=== PATIENT | male | born 1985 | race Caucasian/White ===

== ENCOUNTER 2016-12-17 22:04 | Emergency (ER) | payer OTHER ==
--- NOTE | 2016-12-17 23:34 | DIAGNOSTIC IMAGING REPORT ---
PROCEDURE: US VENOUS - LEFT EXT INDICATION: Recent ACL repair with left leg swelling. Initial encounter. TECHNIQUE: Duplex sonography of the deep venous system in the left lower extremity was performed. Compression and augmentation techniques were used. COMPARISON: None. FINDINGS: There is a left peroneal vein thrombus with partial recanalization. Remainder of the deep system demonstrates normal compression and vascular flow. There is a 4.1 x 2.2 x 0.5 cm hypoechoic area just [id number] anteromedially consistent with a hematoma. IMPRESSION: 1. Left peroneal vein thrombus with recanalization 2. Small hematoma below the knee anteromedially. 3. Results discussed with Dr. Stephens
--- NOTE | 2016-12-17 23:34 | DIAGNOSTIC IMAGING REPORT ---
PROCEDURE: US VENOUS - LEFT EXT INDICATION: Recent ACL repair with left leg swelling. Initial encounter. TECHNIQUE: Duplex sonography of the deep venous system in the left lower extremity was performed. Compression and augmentation techniques were used. COMPARISON: None. FINDINGS: There is a left peroneal vein thrombus with partial recanalization. Remainder of the deep system demonstrates normal compression and vascular flow. There is a 4.1 x 2.2 x 0.5 cm hypoechoic area just [id number] anteromedially consistent with a hematoma. IMPRESSION: 1. Left peroneal vein thrombus with recanalization 2. Small hematoma below the knee anteromedially. 3. Results discussed with Dr. Stephens
--- NOTE | 2016-12-18 00:01 | ED ORDER SUMMARY ---
..... Patient: MONIKA WEBER OrderSheet [facility] VisitID: [id number] [place] [address] 31y, M Registration Date/Time: 12/17/2016 ORDER SHEET Weight: 88.4 kg (stated) Allergies: No Known Drug Allergy GENERAL ORDERS: US Venous Left Urgent (22:20 12/17/2016 Mary Jo Yuen) (Ack 22:21 AMcQuoid ER Tech1) (22:57 AMcQuoid ER Tech1) CBC w Diff Urgent (22:20 12/17/2016 Mary Jo Yuen) (Ack 22:21 AMcQuoid ER Tech1) (23:08 HOShaughnessy R.N.) CMP Urgent (22:20 12/17/2016 Mary Jo Yuen) (Ack 22:21 AMcQuoid ER Tech1) (23:08 HOShaughnessy R.N.) PT with INR Urgent (22:20 12/17/2016 Mary Jo Yuen) (Ack 22:21 AMcQuoid ER Tech1) (23:08 HOShaughnessy R.N.) PTT Urgent (22:20 12/17/2016 Mary Jo Yuen) (Ack 22:21 AMcQuoid ER Tech1) (23:08 HOShaughnessy R.N.) CPK Urgent (22:20 12/17/2016 Mary Jo Yuen) (Ack 22:21 AMcQuoid ER Tech1) (23:08 HOShaughnessy R.N.) MEDICATION ORDERS: IV FLUIDS: IV Saline Lock (22:20 12/17/2016 Mary Jo Yuen) (23:08 HOShaughnessy R.N.) Morphine IV 4 mg (HIGH ALERT MEDICATION, NOW) (23:28 12/17/2016 Mary Jo Yuen) (23:39 HOShaughnessy R.N.) Zofran IV 4 mg (NOW) (23:29 12/17/2016 Mary Jo Yuen) (23:39 HOShaughnessy R.N.) ORDER SHEET NOTES: [Electronically signed by Armen Stephens Dr. (00:05 12/18/2016)] [Electronically signed by Devin Xavier R.N. (00:12/18/2016)] [Electronically locked/signed by Devin Xavier R.N. (00:12/18/2016)]
--- NOTE | 2016-12-18 00:01 | ED ORDER SUMMARY ---
..... Patient: MONIKA WEBER OrderSheet [facility] VisitID: [id number] [place] [address] 31y, M Registration Date/Time: 12/17/2016 ORDER SHEET Weight: 88.4 kg (stated) Allergies: No Known Drug Allergy GENERAL ORDERS: US Venous Left Urgent (22:20 12/17/2016 Mary Jo Yuen) (Ack 22:21 AMcQuoid ER Tech1) (22:57 AMcQuoid ER Tech1) CBC w Diff Urgent (22:20 12/17/2016 Mary Jo Yuen) (Ack 22:21 AMcQuoid ER Tech1) (23:08 HOShaughnessy R.N.) CMP Urgent (22:20 12/17/2016 Mary Jo Yuen) (Ack 22:21 AMcQuoid ER Tech1) (23:08 HOShaughnessy R.N.) PT with INR Urgent (22:20 12/17/2016 Mary Jo Yuen) (Ack 22:21 AMcQuoid ER Tech1) (23:08 HOShaughnessy R.N.) PTT Urgent (22:20 12/17/2016 Mary Jo Yuen) (Ack 22:21 AMcQuoid ER Tech1) (23:08 HOShaughnessy R.N.) CPK Urgent (22:20 12/17/2016 Mary Jo Yuen) (Ack 22:21 AMcQuoid ER Tech1) (23:08 HOShaughnessy R.N.) MEDICATION ORDERS: IV FLUIDS: IV Saline Lock (22:20 12/17/2016 Mary Jo uYen) (23:08 HOShaughnessy R.N.) Morphine IV 4 mg (HIGH ALERT MEDICATION, NOW) (23:28 12/17/2016 Mary Jo Yuen) (23:39 HOShaughnessy R.N.) Zofran IV 4 mg (NOW) (23:29 12/17/2016 Mary Jo Yuen) (23:39 HOShaughnessy R.N.) ORDER SHEET NOTES: [Electronically signed by Armen Stephens Dr. (00:05 12/18/2016)] [Electronically signed by Devin Xavier R.N. (00:12/18/2016)] [Electronically locked/signed by Devin Xavier R.N. (00:12/18/2016)]
--- NOTE | 2016-12-18 00:01 | ED CLINICAL REPORT ---
Clinical Report - Physicians/Mid Levels [facility] [address] [place] [address] 12/17/2016 22:07 Patient: MONIKA WEBER Time Seen: 22:12; initial patient contact. Arrived- By private vehicle. Historian- patient. HISTORY OF PRESENT ILLNESS Chief Complaint: LOWER EXTREMITY PAIN, SWELLING and ALTERED SENSATION. Flexion- worsened by standing, walking and flexion. Relieved by remaining still. This started today and is still present. It was gradual in onset. Severity is described as being moderate. The quality is noted to be sharp. No radiation. Symptoms located in the area of the left knee, left leg and left ankle. The patient has had swelling, but not had redness. He has had difficulty walking. Sensory loss. No motor loss. Patient notes the possibility of an injury. Mechanism of injury- (Post op ACL repair 1 wk ago, Dx'd w/ DVT 4 days ago and started on Elequis.). Similar symptoms previously: None. Recent medical care: The patient was seen recently in the office and hospitalized. ( for ACL Sx and subsequent DVT). REVIEW OF SYSTEMS No cough, chest pain, difficulty breathing or fever. He has had skin rash. All systems otherwise negative, except as recorded above. PAST HISTORY One episode of DVT secondary to surgery. Surgeries: Left knee surgery (ACL 1 week ago). Medications: Elequis. Dulcolax Oral. HydrOXYzine HCl Oral. OxyCODONE HCl Oral. Dilaudid Oral. Allergies: No Known Drug Allergy. SOCIAL HISTORY Never smoker. No alcohol use or drug use. ADDITIONAL NOTES The nursing notes have been reviewed with agreement regarding the chief complaint, PMH and patient medications and allergies. PHYSICAL EXAM Vital Signs: 12/17/2016 22:24 BP: 164/99. HR: 103. RR: 16. O2 saturation: 99%. Temp: 98.3 F. Have been reviewed. Hypertensive. Tachycardic. Respiratory rate normal. Temperature normal. Oxygen saturation normal. Appearance: Alert. Oriented X3. No acute distress. Eyes: Eyes normal inspection. ENT: Pharynx normal. CVS: Normal heart rate and rhythm. Heart sounds normal. Pulses: left dorsalis pedis 2+ and left posterior tibial 2+. Respiratory: No respiratory distress. Breath sounds normal. Skin: Rash present on the left leg (Petechial). Extremities: Left knee: mild tenderness. (Surgical bandage CDI). No erythema or swelling. Mild non-pitting edema of the left lower extremity involving the lower leg. Calf tenderness. Neuro, Vascular and Tendons: Lower extremity capillary refill not prolonged. Gait: Gait not tested due to pain. LABS, X-RAYS, AND EKG Lower Extremity Sonography: 1. Left peroneal vein thrombus with recanalization 2. Small hematoma below the knee anteromedially. The exam was performed by a earth moving technician. The study was interpreted by the radiologist and discussed with the radiologist. Prior studies were not available for comparison. Interpretation time: 23:35. Laboratory Tests: CBC w Diff: (RACHAEL: 12/17/2016 23:02) ( [facility] [place] 12/17/2016 23:10) Final results Test Result Flag Units (Reference) WHITE BLOOD COUNT 6.0 K/uL (4.5-11.5) RED BLOOD COUNT 4.06 L M/uL (4.50-5.90) HEMOGLOBIN 11.8 L gm/dL (13.5-17.5) HEMATOCRIT 34.8 L % (41.0-53.0) MEAN CELL VOLUME 86 fL (80-100) MEAN CORPUSCULAR HGB 29 pg (26-34) MEAN CORPUSCULAR HGB CONC 34 g/dL (31-37) RED CELL DISTRIBUTION WIDTH 12.4 % (11.6-14.8) PLATELET COUNT 169 K/uL (150-400) LYMPH % 26.3 % (25-40) MONO % 3.3 % (3-14) GRANULOCYTE % 70.4 PT with INR: (RACHAEL: 12/17/2016 23:02) ( MsgRcvd 12/17/2016 23:18) Final results Test Result Flag Units (Reference) INR 1.1 (0.8-1.2) Low Intensity Therapy: INR 1.5-2.0 PT range 18.5-23.1Mod.Intensity Therapy: INR 2.0-3.0 PT range 23.1-31.5High Intensity Therapy: INR 2.5-3.5 PT range 27.4-35.5High Intensity Therapy 2: INR 3.0-4.0 PT range 31.5-39.3 APTT 35 H SECONDS (24-34) CMP: (RACHAEL: 12/17/2016 23:02) ( MsgRcvd 12/17/2016 23:43) Final results Test Result Flag Units (Reference) GLUCOSE 90 mg/dL (70-110) BUN 16 mg/dL (7-18) CREATININE 0.9 mg/dL (0.6-1.3) Estimated GFR >60 mL/min Estimated GFR- >60 mL/min Note: Persistent reduction over 3 months in eGFR<60 mL/min/1.73 m2 defines CKD. Patients with eGFR values>=60 mL/min/1.73 m2 may also have CKD if evidence ofpersistent proteinuria. Additional information may be foundat www.kidney.org. SODIUM 137 mmol/L (136-145) POTASSIUM 4.1 mmol/L (3.5-5.1) CHLORIDE 100 mmol/L (98-107) CARBON DIOXIDE 30 mmol/L (21-32) CALCIUM 10.0 mg/dL (8.5-10.1) TOTAL PROTEIN 8.2 g/dL (6.4-8.2) ALBUMIN 4.0 g/dL (3.3-5.0) BILIRUBIN, TOTAL 0.4 mg/dL (0.0-1.0) ALKALINE PHOSPHATASE 68 U/L (46-116) AST (SGOT) 73 H U/L (15-37) ALT (SGPT) 124 H U/L (12-78) CPK 361 H U/L (24-260) CK-MB 0.6 ng/mL (0.5-3.2) %CKMB 0.2 % (0.0-4.0) . PROGRESS AND PROCEDURES Disposition: Discharged home in good and improved condition. Condition: good. CLINICAL IMPRESSION Abnormal liver function test: AST/SGOT and ALT/SGPT. Acute deep venous thrombosis of the left distal lower extremity (Peroneal V). INSTRUCTIONS No weight bearing left leg until released. Your Current Medications: CONTINUE TAKING THE FOLLOWING MEDICATIONS: Dilaudid Oral. Dulcolax Oral. Elequis*. HydrOXYzine HCl Oral. OxyCODONE HCl Oral. Prescription Medications: Oxycodone 5 mg tablets: take 1-2 orally every 6 hours as needed for pain. Dispense fifteen (15). No refill. Follow-up: Follow up with your doctor in about two days. Call for an appointment. Screening today revealed the patient's blood pressure to be in the hypertensive range. The patient should follow up with a primary care provider for blood pressure management. (Electronically signed by Armen Stephens Dr. 12/18/2016 0:05)
--- NOTE | 2016-12-18 00:01 | ED NURSING NOTES ---
Clinical Report - Nurses [facility] [place] [address] 12/17/2016 22:07 Patient: MONIKA WEBER TRIAGE Triage time 2224 PM. Acuity: LEVEL 2. Chief Complaint: INJURY TO THE LEFT KNEE, LEFT LEG, LEFT ANKLE and LEFT FOOT. Alert. No acute distress. RENE COMA SCORE: Teller Coma Scale: 15- eyes open spontaneously (4); best verbal response- oriented x 4 (5); best motor response- obeys commands (6). --22:31 Devin Xavier R.N. 22:24 12/17/16. BP: 164/99. HR: 103. RR: 16. O2 saturation: 99%. Temp: 98.3 F (oral). --22:31 Devin Xavier R.N. Weight: 88.4 kg stated. Height/Length: 73 inches Per Patient. BMI: 25.7. --22:50 Devin Xavier R.N. Medications Dilaudid Oral. --22:29 Devin Xavier R.N. OxyCODONE HCl Oral. --22:29 Devin Xavier R.N. HydrOXYzine HCl Oral. --22:30 Devin Xavier R.N. Dulcolax Oral. --22:30 Devin Xavier R.N. Allergies No Known Drug Allergy. --22:30 Devin Xavier R.N. History Arrived by private vehicle. Historian: patient. Accompanied by family. This occurred (about 4 days ago). ( Patient presents to the ED with symptoms of left lower extremity pain, swelling, and petechiae. Patient states that he had ACL repair surgery on 12/11 and was diagnosed with a blood clot on 12/13 and discharged with a prescription for elliquis. States that he has been taking the medications as prescribed, but the pain and swelling had worsened. Patient orthopedic surgeon suggested patient be seen in the ED for rule out compartment syndrome.). He has had numbness, tingling, and trouble walking. PAST MEDICAL HX: Tetanus status: up-to-date. SOCIAL HX: Never smoker. Alcohol use. (no). History of drug use. (no). FALL RISK ASSESSMENT: Fall risk assessment completed. No fall risk identified. NUTRITIONAL RISK ASSESSMENT: The nutritional risk assessment revealed no deficiencies. FUNCTIONAL ASSESSMENT: Functional assessment: no impairments noted. LEARNING NEEDS ASSESSMENT: The learning needs assessment revealed no barriers. SKIN INTEGRITY ASSESSMENT: Skin integrity risk assessment completed. No skin integrity risk identified. --22:31 Devin Xavier R.N. PROBLEMS: no known problems. ADDITIONAL SURGERIES: ACL Repair . --22:30 Devin Xavier R.N. Interventions ID band on patient. --22:31 Devin Xavier R.N. PHYSICAL ASSESSMENT (crutches). GENERAL / NEURO / PSYCH: Oriented X 4. Alert. Appears in no acute distress. He has had numbness. EXTREMITIES: Limited ROM present. Capillary refill is less than 2 seconds in the extremities. Extremity pulses are within normal limits. Extremities exhibit normal ROM. Neuro-vascular status intact to the extremity. Left knee. Left leg. Left ankle. Left foot: erythema. SKIN: ( petechiae to left lower extremity). --22:32 Devin Xavier R.N. NURSING PROGRESS NOTES Reassurance given. Call light placed in reach. Side rails up x 2. Bed placed in lowest position. Brakes of bed on. --22:32 Devin Xavier R.N. 22:57 Ultrasound complete. --22:57 [place], [place], ER Tech1 23:08 12/17/2016 Site #1 started via IV in the right forearm with an 18g angiocath; one attempt. Blood drawn: rainbow set. Labeled in the presence of the patient and sent to the lab. Saline lock flushed with 10 mL saline. --23:08 Devin Xavier R.N. 23:38 12/17/2016 Morphine IVP 4 mg given over 2 minute(s) via site #1. Allergies verified, confirmed 5 rights and sedative warning given to the patient. IV patency established. IV site checked: no pain, redness, or swelling. IV flushed thoroughly pre- and post-medication administration. IVP given by RN. --23:39 Devin Xavier R.N. 23:39 12/17/2016 Zofran (Ondansetron HCl) IVP 4 mg given over 2 minute(s) via site #1. Allergies verified and confirmed 5 rights. IV patency established. IV site checked: no pain, redness, or swelling. IV flushed thoroughly pre- and post-medication administration. IVP given by RN. --23:39 Devin Xavier R.N. Reassurance given. Call light placed in reach. Side rails up x 2. --23:39 Devin Xavier R.N. 23:39 12/17/16. BP: 152/110. HR: 81. RR: 16. O2 saturation: 100%. Temp: 98.6 F (oral). Pain level now: 10. --23:39 Devin Xavier R.N. The patient is calm and resting quietly. Overall patient status is the same- he states feels the same. --23:39 Devin Xavier R.N. DISPOSITION / DISCHARGE 00:04 12/18/2016 Site #1 removed upon discharge. Catheter intact. Bandage applied. --00:04 Devin Xavier R.N. 00:03 12/18/16. BP: 144/97. HR: 82. RR: 16. O2 saturation: 97% on room air. Temp: 98.2 F (oral). Pain level now: 0/10. --00:04 Devin Xavier R.N. Condition at departure: improved. The goals identified in the patient's plan of care were met. Reviewed medication(s) side effects, precautions, dosing and course information. Prescription(s) given to the patient. Patient verbalized understanding. Written instructions provided in Palestinian. The patient was discharged home and accompanied by spouse. He left the Emergency Department ambulatory and via private vehicle. Spouse driving. FALL RISK ASSESSMENT: Fall risk assessment completed. No fall risk identified. --00:20 Devin Xavier R.N. Departure time: 0020 AM. --00:20 Devin Xavier R.N. Locked/Released at 12/18/2016 0:21 by Devin Xavier R.N.
--- NOTE | 2016-12-18 00:21 | ED MED RECONCILIATION SUMMARY ---
Patient: MONIKA WEBER Medication Reconciliation Report [facility] VisitID: [id number] [address] [place] [address] 31y, M Registration Date/Time: 12/17/2016 Weight: 88.4 kg Height/Length: 73 in. BMI: 25.7 ALLERGIES: No Known Drug Allergy The patient's Home Medications are listed below: CONTINUE TAKING THE FOLLOWING MEDICATIONS: Dilaudid Oral Dulcolax Oral Elequis HydrOXYzine HCl Oral OxyCODONE HCl Oral The source(s) of the original Home Medication information: Not obtained. The following Medications were given to the patient in the Emergency Department: Morphine [IVP] IVP 4 mg, administered: 12/17/2016 11:38:00 PM Zofran [IVP] IVP 4 mg, administered: 12/17/2016 11:39:00 PM The following Medications were prescribed to the patient: Oxycodone 5 mg tablets: take 1-2 orally every 6 hours as needed for pain. Dispense fifteen (15). No refill. -- Armen Stephens Dr.
--- NOTE | 2016-12-18 00:21 | ED MED RECONCILIATION SUMMARY ---
Patient: MONIKA WEBER Medication Reconciliation Report [facility] VisitID: [id number] [address] [place] [address] 31y, M Registration Date/Time: 12/17/2016 Weight: 88.4 kg Height/Length: 73 in. BMI: 25.7 ALLERGIES: No Known Drug Allergy The patient's Home Medications are listed below: CONTINUE TAKING THE FOLLOWING MEDICATIONS: Dilaudid Oral Dulcolax Oral Elequis HydrOXYzine HCl Oral OxyCODONE HCl Oral The source(s) of the original Home Medication information: Not obtained. The following Medications were given to the patient in the Emergency Department: Morphine [IVP] IVP 4 mg, administered: 12/17/2016 11:38:00 PM Zofran [IVP] IVP 4 mg, administered: 12/17/2016 11:39:00 PM The following Medications were prescribed to the patient: Oxycodone 5 mg tablets: take 1-2 orally every 6 hours as needed for pain. Dispense fifteen (15). No refill. -- Armen Stephens Dr.
--- NOTE | 2016-12-18 00:21 | ED DISCHARGE INSTRUCTIONS ---
Patient: MONIKA WEBER General Instructions [facility] VisitID: [id number] [address] [place] [address] 31y, M Registration Date/Time: 12/17/2016 Abnormal liver function test: AST/SGOT and ALT/SGPT. Acute deep venous thrombosis of the left distal lower extremity (Peroneal V). INSTRUCTIONS No weight bearing left leg until released. Your Current Medications: CONTINUE TAKING THE FOLLOWING MEDICATIONS: Dilaudid Oral. Dulcolax Oral. Elequis*. HydrOXYzine HCl Oral. OxyCODONE HCl Oral. Prescription Medications: Oxycodone 5 mg tablets: take 1-2 orally every 6 hours as needed for pain. Dispense fifteen (15). No refill. Follow-up: Follow up with your doctor in about two days. Call for an appointment. Screening today revealed the patient's blood pressure to be in the hypertensive range. The patient should follow up with a primary care provider for blood pressure management. ADDITIONAL INFORMATION Oxycodone Hydrochloride, Acetaminophen Oral tablet What is this medicine? ACETAMINOPHEN; OXYCODONE (a set a IRMA nghia fen; ox i KOE done) is a pain reliever. It is used to treat mild to moderate pain. How should I use this medicine? Take this medicine by mouth with a full glass of water. Follow the directions on the prescription label. Take your medicine at regular intervals. Do not take your medicine more often than directed. Talk to your senior microstrategy developer regarding the use of this medicine in children. Special care may be needed. Patients over 65 years old may have a stronger reaction and need a smaller dose. What side effects may I notice from receiving this medicine? Side effects that you should report to your doctor or health home health care worker as soon as possible: allergic reactions like skin rash, itching or hives, swelling of the face, lips, or tongue breathing difficulties, wheezing confusion light headedness or fainting spells severe stomach pain yellowing of the skin or the whites of the eyes Side effects that usually do not require medical attention (report to your doctor or health home health care worker if they continue or are bothersome): dizziness drowsiness nausea vomiting What may interact with this medicine? alcohol antihistamines barbiturates like amobarbital, butalbital, butabarbital, methohexital, pentobarbital, phenobarbital, thiopental, and secobarbital benztropine drugs for bladder problems like solifenacin, trospium, oxybutynin, tolterodine, hyoscyamine, and methscopolamine drugs for breathing problems like ipratropium and tiotropium drugs for certain stomach or intestine problems like propantheline, homatropine methylbromide, glycopyrrolate, atropine, belladonna, and dicyclomine general anesthetics like etomidate, ketamine, nitrous oxide, propofol, desflurane, enflurane, halothane, isoflurane, and sevoflurane medicines for depression, anxiety, or psychotic disturbances medicines for sleep muscle relaxants naltrexone narcotic medicines (opiates) for pain phenothiazines like perphenazine, thioridazine, chlorpromazine, mesoridazine, fluphenazine, prochlorperazine, promazine, and trifluoperazine scopolamine tramadol trihexyphenidyl What if I miss a dose? If you miss a dose, take it as soon as you can. If it is almost time for your next dose, take only that dose. Do not take double or extra doses. Where should I keep my medicine? Keep out of the reach of children. This medicine can be abused. Keep your medicine in a safe place to protect it from theft. Do not share this medicine with anyone. Selling or giving away this medicine is dangerous and against the law. Store at room temperature between 20 and 25 degrees C (68 and 77 degrees F). Keep container tightly closed. Protect from light. This medicine may cause accidental overdose and if it is taken by other adults, children, or pets. Flush any unused medicine down the toilet to reduce the chance of harm. Do not use the medicine after the expiration date. What should I tell my health care provider before I take this medicine? They need to know if you have any of these conditions: brain tumor Crohn's disease, inflammatory bowel disease, or ulcerative colitis drink more than 3 alcohol containing drinks per day drug abuse or addiction head injury heart or circulation problems kidney disease or problems going to the bathroom liver disease lung disease, asthma, or breathing problems an unusual or allergic reaction to acetaminophen, oxycodone, other opioid analgesics, other medicines, foods, dyes, or preservatives or trying to get breast-feeding What should I watch for while using this medicine? Tell your doctor or health home health care worker if your pain does not go away, if it gets worse, or if you have new or a different type of pain. You may develop tolerance to the medicine. Tolerance means that you will need a higher dose of the medication for pain relief. Tolerance is normal and is expected if you take this medicine for a long time. Do not suddenly stop taking your medicine because you may develop a severe reaction. Your body becomes used to the medicine. This does NOT mean you are addicted. Addiction is a behavior related to getting and using a drug for a non-medical reason. If you have pain, you have a medical reason to take pain medicine. Your doctor will tell you how much medicine to take. If your doctor wants you to stop the medicine, the dose will be slowly lowered over time to avoid any side effects. You may get drowsy or dizzy. Do not drive, use machinery, or do anything that needs mental alertness until you know how this medicine affects you. Do not stand or sit up quickly, especially if you are an older patient. This reduces the risk of dizzy or fainting spells. Alcohol may interfere with the effect of this medicine. Avoid alcoholic drinks. There are different types of narcotic medicines (opiates) for pain. If you take more than one type at the same time, you may have more side effects. Give your health care provider a list of all medicines you use. Your doctor will tell you how much medicine to take. Do not take more medicine than directed. Call emergency for help if you have problems breathing. The medicine will cause constipation. Try to have a bowel movement at least every 2 to 3 days. If you do not have a bowel movement for 3 days, call your doctor or health home health care worker. Do not take Tylenol (acetaminophen) or medicines that have acetaminophen with this medicine. Too much acetaminophen can be very dangerous. Many nonprescription medicines contain acetaminophen. Always read the labels carefully to avoid taking more acetaminophen. You have been given the following additional information: Oxycodone Hydrochloride, Acetaminophen Oral tablet No weight bearing left leg until released. (Electronically signed by Armen Stephens Dr. 12/18/2016 0:05)
--- NOTE | 2016-12-18 00:21 | ED MAR SUMMARY ---
..... Medication Administration Record [facility] [address] [place] [address] Patient: MONIKA WEBER Visit ID: [id number] 31y, M Weight: 88.4 kg Height/Length: 73 in BMI: 25.7 ALLERGIES: No Known Drug Allergy Given 23:38 12/17/2016 Devin Xavier, RErinN. Medication Administered: MORPHINE [IVP], Dose: 4 mg IVP over 2 minute(s), Site: #1 right forearm. Medication Ordered: Morphine IV 4 mg (HIGH ALERT MEDICATION, NOW). Given 23:39 12/17/2016 Devin Xavier, R.N. Medication Administered: ZOFRAN [IVP] (ONDANSETRON HCL), Dose: 4 mg IVP over 2 minute(s), Site: #1 right forearm. Medication Ordered: Zofran IV 4 mg (NOW).
--- NOTE | 2016-12-18 00:21 | ED DISCHARGE INSTRUCTIONS ---
Patient: MONIKA WEBER General Instructions [facility] VisitID: [id number] [address] [place] [address] 31y, M Registration Date/Time: 12/17/2016 Abnormal liver function test: AST/SGOT and ALT/SGPT. Acute deep venous thrombosis of the left distal lower extremity (Peroneal V). INSTRUCTIONS No weight bearing left leg until released. Your Current Medications: CONTINUE TAKING THE FOLLOWING MEDICATIONS: Dilaudid Oral. Dulcolax Oral. Elequis*. HydrOXYzine HCl Oral. OxyCODONE HCl Oral. Prescription Medications: Oxycodone 5 mg tablets: take 1-2 orally every 6 hours as needed for pain. Dispense fifteen (15). No refill. Follow-up: Follow up with your doctor in about two days. Call for an appointment. Screening today revealed the patient's blood pressure to be in the hypertensive range. The patient should follow up with a primary care provider for blood pressure management. ADDITIONAL INFORMATION Oxycodone Hydrochloride, Acetaminophen Oral tablet What is this medicine? ACETAMINOPHEN; OXYCODONE (a set a IRMA nghia fen; ox i KOE done) is a pain reliever. It is used to treat mild to moderate pain. How should I use this medicine? Take this medicine by mouth with a full glass of water. Follow the directions on the prescription label. Take your medicine at regular intervals. Do not take your medicine more often than directed. Talk to your scale clerk regarding the use of this medicine in children. Special care may be needed. Patients over 65 years old may have a stronger reaction and need a smaller dose. What side effects may I notice from receiving this medicine? Side effects that you should report to your doctor or health adult daycare coordinator as soon as possible: allergic reactions like skin rash, itching or hives, swelling of the face, lips, or tongue breathing difficulties, wheezing confusion light headedness or fainting spells severe stomach pain yellowing of the skin or the whites of the eyes Side effects that usually do not require medical attention (report to your doctor or health adult daycare coordinator if they continue or are bothersome): dizziness drowsiness nausea vomiting What may interact with this medicine? alcohol antihistamines barbiturates like amobarbital, butalbital, butabarbital, methohexital, pentobarbital, phenobarbital, thiopental, and secobarbital benztropine drugs for bladder problems like solifenacin, trospium, oxybutynin, tolterodine, hyoscyamine, and methscopolamine drugs for breathing problems like ipratropium and tiotropium drugs for certain stomach or intestine problems like propantheline, homatropine methylbromide, glycopyrrolate, atropine, belladonna, and dicyclomine general anesthetics like etomidate, ketamine, nitrous oxide, propofol, desflurane, enflurane, halothane, isoflurane, and sevoflurane medicines for depression, anxiety, or psychotic disturbances medicines for sleep muscle relaxants naltrexone narcotic medicines (opiates) for pain phenothiazines like perphenazine, thioridazine, chlorpromazine, mesoridazine, fluphenazine, prochlorperazine, promazine, and trifluoperazine scopolamine tramadol trihexyphenidyl What if I miss a dose? If you miss a dose, take it as soon as you can. If it is almost time for your next dose, take only that dose. Do not take double or extra doses. Where should I keep my medicine? Keep out of the reach of children. This medicine can be abused. Keep your medicine in a safe place to protect it from theft. Do not share this medicine with anyone. Selling or giving away this medicine is dangerous and against the law. Store at room temperature between 20 and 25 degrees C (68 and 77 degrees F). Keep container tightly closed. Protect from light. This medicine may cause accidental overdose and if it is taken by other adults, children, or pets. Flush any unused medicine down the toilet to reduce the chance of harm. Do not use the medicine after the expiration date. What should I tell my health care provider before I take this medicine? They need to know if you have any of these conditions: brain tumor Crohn's disease, inflammatory bowel disease, or ulcerative colitis drink more than 3 alcohol containing drinks per day drug abuse or addiction head injury heart or circulation problems kidney disease or problems going to the bathroom liver disease lung disease, asthma, or breathing problems an unusual or allergic reaction to acetaminophen, oxycodone, other opioid analgesics, other medicines, foods, dyes, or preservatives or trying to get breast-feeding What should I watch for while using this medicine? Tell your doctor or health adult daycare coordinator if your pain does not go away, if it gets worse, or if you have new or a different type of pain. You may develop tolerance to the medicine. Tolerance means that you will need a higher dose of the medication for pain relief. Tolerance is normal and is expected if you take this medicine for a long time. Do not suddenly stop taking your medicine because you may develop a severe reaction. Your body becomes used to the medicine. This does NOT mean you are addicted. Addiction is a behavior related to getting and using a drug for a non-medical reason. If you have pain, you have a medical reason to take pain medicine. Your doctor will tell you how much medicine to take. If your doctor wants you to stop the medicine, the dose will be slowly lowered over time to avoid any side effects. You may get drowsy or dizzy. Do not drive, use machinery, or do anything that needs mental alertness until you know how this medicine affects you. Do not stand or sit up quickly, especially if you are an older patient. This reduces the risk of dizzy or fainting spells. Alcohol may interfere with the effect of this medicine. Avoid alcoholic drinks. There are different types of narcotic medicines (opiates) for pain. If you take more than one type at the same time, you may have more side effects. Give your health care provider a list of all medicines you use. Your doctor will tell you how much medicine to take. Do not take more medicine than directed. Call emergency for help if you have problems breathing. The medicine will cause constipation. Try to have a bowel movement at least every 2 to 3 days. If you do not have a bowel movement for 3 days, call your doctor or health adult daycare coordinator. Do not take Tylenol (acetaminophen) or medicines that have acetaminophen with this medicine. Too much acetaminophen can be very dangerous. Many nonprescription medicines contain acetaminophen. Always read the labels carefully to avoid taking more acetaminophen. You have been given the following additional information: Oxycodone Hydrochloride, Acetaminophen Oral tablet No weight bearing left leg until released. (Electronically signed by Armen Stephens Dr. 12/18/2016 0:05)
--- NOTE | 2016-12-18 00:21 | ED MAR SUMMARY ---
..... Medication Administration Record [facility] [address] [place] [address] Patient: MONIKA WEBER Visit ID: [id number] 31y, M Weight: 88.4 kg Height/Length: 73 in BMI: 25.7 ALLERGIES: No Known Drug Allergy Given 23:38 12/17/2016 Devin Xavier, RErinN. Medication Administered: MORPHINE [IVP], Dose: 4 mg IVP over 2 minute(s), Site: #1 right forearm. Medication Ordered: Morphine IV 4 mg (HIGH ALERT MEDICATION, NOW). Given 23:39 12/17/2016 Devin Xavier, R.N. Medication Administered: ZOFRAN [IVP] (ONDANSETRON HCL), Dose: 4 mg IVP over 2 minute(s), Site: #1 right forearm. Medication Ordered: Zofran IV 4 mg (NOW).
== END 2016-12-18 00:21 | disposition home or self-care (01) ==
LOC: ED SRH 22:04
DX: I82.4Z2 Acute embolism and thrombosis of unspecified deep veins of left distal lower extremity (principal); R94.5 Abnormal results of liver function studies